=== PATIENT | female | born 2000 | race Two or more races ===

== ENCOUNTER 2022-10-17 12:35 | Emergency (ER) | payer MEDICAID, OTHER ==
[~2022-10-17] VITALS: Ht 160 cm; Wt 68.1 kg
[2022-10-17] MEDS ORDERED: SODIUM CHLORIDE 0.9% 1,000 ML IV ONE (13:15)
[2022-10-17 14:01] LABS: Urine Bacteria NONE SEEN /hpf (None Seen); Urine Blood 2+ /uL (Negative); Urine Hyaline Cast MOD /lpf (0 - 2); Urine Mucus FEW (None Seen); Urine Specific Gravity 1.017 (1.001-1.035); Urine WBC 2 /hpf (0 - 5)
[2022-10-17 14:30] LABS: Basophils # (auto) 0 10 ^3/uL (0-0.2); Basophils % (auto) 0.3 % (0.0-2.0); Eosinophils # (auto) 0 10 ^3/uL (0-0.8); Monocytes # (auto) 0.6 10 ^3/uL (0-1.3)
[2022-10-17 14:34] LABS: Hematocrit 34.9 % (36.0-46.0); Hemoglobin 11.1 g/dL (12.2-16.2); Lymphocytes # (auto) 1.3 10 ^3/uL (0.4-5.4); Lymphocytes % (auto) 9.2 % (10.0-50.0); Mean Corpuscular Hemoglobin 23.8 pg (28.0-32.0); Mean Corpuscular Hgb Conc. 31.6 g/dL (32.0-36.0); Mean Corpuscular Volume 75.3 fL (80.0-100.0); Monocytes % (auto) 4.3 % (0.0-12.0); Neutrophils # (auto) 11.9 10 ^3/uL (1.6-8.6); Neutrophils % (auto) 86.2 % (37.0-80.0); Nucleated Red Blood Cells % 0.1 %; Red Blood Cells 4.64 10^6/uL (4.0-5.20); Red Cell Distribution Width 16.8 % (11.8-14.3); White Blood Cell 13.9 10^3/uL (4.4-10.8)
[2022-10-17] MEDS ORDERED: HYDROcodone-ACET 5/325MG TAB PO ONE (14:45)
[2022-10-17] MEDS ORDERED: ASPirin 325 MG TAB PO ONE (14:45)
[2022-10-17 14:55] LABS: Albumin 3.7 g/dL (3.4-5.0); Calcium 8.8 mg/dL (8.5-10.1); Potassium 3.8 mmol/L (3.5-5.1)
[2022-10-17 14:58] LABS: BUN/Creatinine Ratio 14.1 (10.0-20.0)
[2022-10-17 14:59] LABS: Bilirubin, Total 0.3 mg/dL (0.2-1.0)
[2022-10-17] MEDS ORDERED: LORazepam 0.5 MG TAB PO ONE (15:45)
[2022-10-17 16:30] VITALS: BP 102/56
[2022-10-17] MEDS ORDERED: HYDR-3682 PO (17:12)
== END 2022-10-17 17:16 | disposition home or self-care (01) ==
LOC: EDBD 12:35 → ER 12:35
DX: S29.9XXA Unspecified injury of thorax, initial encounter (principal); Y04.2XXA Assault by strike against or bumped into by another person, initial encounter; Y93.89 Activity, other specified; Y92.89 Other specified places as the place of occurrence of the external cause; Y99.8 Other external cause status
CPT/HCPCS: 36415; 71045; 80053; 81001; 81025; 84484; 85025; 93005; 96360; 99285; J7030